=== PATIENT | male | born 2000 | race Caucasian/White ===

== ENCOUNTER 2023-03-13 09:05 | Emergency (ER) | payer BC, OTHER ==
[~2023-03-13] VITALS: Ht 167.7 cm; Wt 72.7 kg
--- NOTE | 2023-03-13 09:17 | ED Integumentary General ---
General Chief Complaint: Laceration Stated Complaint: LEFT EYE ABRASION Nursing Triage Note: pt states he hit his head on a concret corner in his basement and has a small laceration on his left eye History of Present Illness Date Seen by Provider: Mar 13, 2023 Time Seen by Provider: 09:17 Initial Comments 22-year-old male with a small laceration over his left eye. He reports that he accidentally hit his head on the concrete stairwell corner. Patient reports he is up-to-date on his tetanus. This happened just prior to arrival. Allergies and Home Medications Patient Home Medication List Home Medication List Reviewed: Yes Review of Systems Review of Systems Constitutional: no symptoms reported EENTM: see HPI Respiratory: no symptoms reported Cardiovascular: see HPI Gastrointestinal: no symptoms reported Skin: see HPI Past Hpfuijr-Ngcokv-Rizvma Hx Patient Social History Tobacco Use?: No Substance use?: Yes Substance type: Marijuana Substance frequency: Once in a while Alcohol Use?: Yes Alcohol Frequency: Once in a while Physical Exam Vital Signs Vital Signs - First Documented 03/13/23 09:13 Temp 36.2 Pulse 88 Resp 16 B/P (MAP) 163/89 (113) Pulse Ox 97 Capillary Refill : General Appearance: WD/WN, no apparent distress HEENT: other (Mild swelling left periorbital) Cardiovascular: normal peripheral pulses, regular rate, rhythm Respiratory: lungs clear, normal breath sounds Neurologic/Psychiatric: alert, normal mood/affect, oriented x 3 Skin Problem Location: face Skin Problem Character: linear, other (2 cm linear laceration) Procedures/Interventions Wound Location: Eye Other Wound Location Left eyelid Wound Length (cm): 2 Wound's Depth, Shape: superficial, linear Wound Explored: clean Betadine Prep?: No Other Closure Supply: Wound Adhesive Patient tolerated well with no immediate complication Progress/Results/Core Measures Results/Orders Vital Signs/I&O 03/13/23 09:13 Temp 36.2 Pulse 88 Resp 16 B/P (MAP) 163/89 (113) Pulse Ox 97 Blood Pressure Mean: 113 Progress Progress Note : Progress Note Patient with superficial linear laceration left eyelid that was closed with good approximation with skin adhesive. Supportive care with instructions were provided. He was stable and discharged Departure Impression Primary Impression: Laceration of left eyelid and periocular area Qualified Codes: S01.112A - Laceration without foreign body of left eyelid and periocular area, initial encounter Disposition: HOME, SELF-CARE Condition: Stable Departure-Patient Inst. Referrals: NO,LOCAL PHYSICIAN (PCP) Primary Care Physician Patient Instructions: Laceration Repair With Glue ED Add. Discharge Instructions: Please allow adhesive to come off on its own. Keep clean with warm soapy water. Follow-up with your primary care provider as needed All discharge instructions reviewed with patient and/or family. Voiced understanding. NASIR NAGY DO Mar 13, 2023 09:17
[2023-03-13 09:33] VITALS: BP 163/89
== END 2023-03-13 09:34 | disposition home or self-care (01) ==
LOC: ER 09:09
DX: S01.112A Laceration without foreign body of left eyelid and periocular area, initial encounter (principal); W22.8XXA Striking against or struck by other objects, initial encounter